=== PATIENT | female | born 1930 | race Caucasian/White ===

== ENCOUNTER 2018-10-15 16:53 | Emergency (ER) | payer MEDICARE ==
[~2018-10-15 16:53] MED LIST changes: -CEPH500T7 PO; -FAMO20TA28 PO; -FURO20TA19 PO; -POTA20TA94 PO
--- NOTE | 2018-10-15 16:57 | ER Report ---
History and Physical Time Seen By MD: 16:57 Hx. of Stated Complaint: ABD PAIN HPI/ROS CHIEF COMPLAINT: Abdominal pain HISTORY OF PRESENT ILLNESS: 88-year-old female patient presents to emergency room with complaint of abdominal pain. Patient states she had sudden onset of abdominal pain approximately one hour ago. Patient states pain seems to be slightly improved at this time. Patient denies having any nausea, vomiting or diarrhea. Patient states that the pain was so bad that she is not able to tolerated initially. She states that she has got taken any medication for this. She denies having anything that seems to make the pain better or worse. Patient denies having any chest pain at this time. REVIEW OF SYSTEMS: Respiratory: No cough, no dyspnea. Cardiovascular: No chest pain, no palpitations. Gastrointestinal: As noted above Musculoskeletal: No back pain. Allergies: Coded Allergies: ibuprofen (Verified Allergy, Unknown, 06/20/17) Home Meds Active Scripts Cephalexin 500 Mg Tab (KEFLEX 500 MG TAB) 500 Mg Tablet, 500 MG PO BID, #14 TAB Prov:INDER ESPOSITO 10/15/18 Reported Medications Potassium Chloride (POTASSIUM CHLORIDE) 20 Meq Tab.er.prt, 40 MEQ PO QDAY 10/15/18 Furosemide (LASIX) 20 Mg Tablet, 1 TAB PO DAILY, TAB 10/15/18 Coconut Oil (COCONUT OIL) 100 Gm Oil, 100 GM PO 5XD spoonful 06/20/17 Aller Xt-Tree Pollen-Melaleuca (Melaleuca) 1:20 Vial, 1 VIAL PO QDAY 06/20/17 Multivitamin With Minerals (MULTIPLE VITAMIN) 1 Each Tablet, 1 EACH PO QDAY, TAB 06/20/17 Discontinued Scripts Hydrocodone Bit/Acetaminophen (HYDROCODON-ACETAMINOPHEN 5-325) 1 Each Tablet, 1 EACH PO Q4-6H PRN for MILD TO MODERATE PAIN, #20 TAB 0 Refills Prov:ANMOL GAYTAN DO 06/28/17 Past Medical/Surgical History Patient has a past medical history of dementia, lower extremity edema, A. fib, hypertension, shortness of breath and exertional frequent UTI, knee pain, arthritis, wrist fracture, back pain, diabetes, anxiety. Patient has a surgical history of cataract surgery, lumbar surgery, right total hip replacement, right hip surgery, hysterectomy. Patient has a family medical history of diabetes. Reviewed Nurses Notes: Yes Hx Smoking: No Smoking Status: Never Smoker Exposure to Second Hand Smoke?: No Hx Substance Use Disorder: No Hx Alcohol Use: No Constitutional Vital Sign - Last 24 Hours 10/15/18 10/15/18 10/15/18 10/15/18 16:50 16:53 17:00 17:23 Temp 98.2 Pulse 76 80 78 Resp 14 32 12 B/P (MAP) 152/68 158/78 (104) Pulse Ox 87 85 97 O2 Delivery Room Air 10/15/18 10/15/18 10/15/18 10/15/18 17:30 18:00 19:10 19:30 Pulse 82 91 Resp 9 9 B/P (MAP) 180/73 (108) 179/67 (104) 169/86 (113) 159/79 (105) Pulse Ox 97 96 Physical Exam General Appearance: The patient is alert, has no immediate need for airway protection and no current signs of toxicity. Respiratory: Chest is non tender, lungs are clear to auscultation. Cardiac: regular rate and rhythm Gastrointestinal: Abdomen is soft and tender in bilateral upper quadrants, no masses, bowel sounds normal. Musculoskeletal: Neck: Neck is supple and non tender. Extremities have full range of motion and are non tender. Skin: No rashes or lesions. DIFFERENTIAL DIAGNOSIS: After history and physical exam differential diagnosis was considered for abdominal pain including but not limited to appendicitis, cholecystitis, gastritis and urinary tract infection. Medical Decision Making Data Points Result Diagram: 10/15/18 1705 10/15/18 1705 Laboratory Hematology Test 10/15/18 17:05 10/15/18 17:37 Red Blood Count 4.90 M/uL (4.17-5.56) Mean Corpuscular Volume 94.7 fL (80.0-96.0) Mean Corpuscular Hemoglobin 31.8 pg (26.0-33.0) Mean Corpuscular Hemoglobin Concent 33.6 g/dL (32.0-36.0) Red Cell Distribution Width 12.9 % (11.5-14.5) Mean Platelet Volume 7.0 fL (7.2-11.1) Neutrophils (%) (Auto) 49.7 % (39.4-72.5) Lymphocytes (%) (Auto) 40.3 % (17.6-49.6) Monocytes (%) (Auto) 7.0 % (4.1-12.4) Eosinophils (%) (Auto) 2.4 % (0.4-6.7) Basophils (%) (Auto) 0.6 % (0.3-1.4) Nucleated RBC Relative Count (auto) 0.0 /100WBC Neutrophils # (Auto) 5.5 K/uL (2.0-7.4) Lymphocytes # (Auto) 4.5 K/uL (1.3-3.6) Monocytes # (Auto) 0.8 K/uL (0.3-1.0) Eosinophils # (Auto) 0.3 K/uL (0.0-0.5) Basophils # (Auto) 0.1 K/uL (0.0-0.1) Nucleated RBC Absolute Count (auto) 0.00 K/uL Prothrombin Time 12.2 seconds (12.0-14.4) Prothromb Time International Ratio 0.91 Activated Partial Thromboplast Time 28 seconds (23-35) D-Dimer Quantitative (PE/DVT) 1.06 ug/ml (0-0.50) Sodium Level 139 mmol/L (137-145) Potassium Level 4.8 mmol/L (3.5-5.0) Chloride Level 101 mmol/L (98-107) Carbon Dioxide Level 25 mmol/L (22-31) Blood Urea Nitrogen 15 mg/dl (7-18) Creatinine 0.90 mg/dl (0.52-1.04) Glomerular Filtration Rate Calc 59.1 Random Glucose 134 mg/dl (75-110) Lactate 2.4 mmol/L (0.7-2.1) Calcium Level 9.9 mg/dl (8.4-10.2) Total Bilirubin 0.6 mg/dl (0.2-1.3) Aspartate Amino Transf (AST/SGOT) 107 U/L (0-35) Alanine Aminotransferase (ALT/SGPT) 55 U/L (0-56) Alkaline Phosphatase 105 U/L (0-126) Troponin I < 0.012 ng/ml C-Reactive Protein < 0.5 mg/dl (<1.0) Total Protein 8.0 g/dl (6.3-8.2) Albumin 4.6 g/dl (3.5-5.0) Amylase Level 76 U/L (0-110) Lipase 139 U/L (23-300) Urine Color [place] Urine Clarity Cloudy Urine pH 5.0 pH (4.8-9.5) Urine Specific [place] 1.018 Urine Protein 30 mg/dL (NEGATIVE) Urine Glucose (UA) Negative mg/dL (NEGATIVE) Urine Ketones Negative mg/dL (NEGATIVE) Urine Blood Negative (NEGATIVE) Urine Nitrite Negative (NEGATIVE) Urine Bilirubin Negative (NEGATIVE) Urine Urobilinogen 2.0 mg/dL (0.2-1.9) Urine Leukocyte Esterase Large (NEGATIVE) Urine RBC 12 /HPF (0-2/HPF) Urine WBC 442 /HPF (0-5/HPF) Urine WBC Clumps Few /HPF Urine Squamous Epithelial Cells Many /LPF (</=FEW) Urine Bacteria Few /HPF (NONE-FEW) Urine Hyaline Casts Many /LPF (NONE-FEW) Urine Mucus Few /HPF (NONE-FEW) Chemistry Test 10/15/18 17:05 10/15/18 17:37 White Blood Count 11.1 k/uL (4.5-11.0) Red Blood Count 4.90 M/uL (4.17-5.56) Hemoglobin 15.6 g/dL (12.0-16.0) Hematocrit 46.4 % (34.0-47.0) Mean Corpuscular Volume 94.7 fL (80.0-96.0) Mean Corpuscular Hemoglobin 31.8 pg (26.0-33.0) Mean Corpuscular Hemoglobin Concent 33.6 g/dL (32.0-36.0) Red Cell Distribution Width 12.9 % (11.5-14.5) Platelet Count 417 K/uL (150-450) Mean Platelet Volume 7.0 fL (7.2-11.1) Neutrophils (%) (Auto) 49.7 % (39.4-72.5) Lymphocytes (%) (Auto) 40.3 % (17.6-49.6) Monocytes (%) (Auto) 7.0 % (4.1-12.4) Eosinophils (%) (Auto) 2.4 % (0.4-6.7) Basophils (%) (Auto) 0.6 % (0.3-1.4) Nucleated RBC Relative Count (auto) 0.0 /100WBC Neutrophils # (Auto) 5.5 K/uL (2.0-7.4) Lymphocytes # (Auto) 4.5 K/uL (1.3-3.6) Monocytes # (Auto) 0.8 K/uL (0.3-1.0) Eosinophils # (Auto) 0.3 K/uL (0.0-0.5) Basophils # (Auto) 0.1 K/uL (0.0-0.1) Nucleated RBC Absolute Count (auto) 0.00 K/uL Prothrombin Time 12.2 seconds (12.0-14.4) Prothromb Time International Ratio 0.91 Activated Partial Thromboplast Time 28 seconds (23-35) D-Dimer Quantitative (PE/DVT) 1.06 ug/ml (0-0.50) Glomerular Filtration Rate Calc 59.1 Lactate 2.4 mmol/L (0.7-2.1) Calcium Level 9.9 mg/dl (8.4-10.2) Total Bilirubin 0.6 mg/dl (0.2-1.3) Aspartate Amino Transf (AST/SGOT) 107 U/L (0-35) Alanine Aminotransferase (ALT/SGPT) 55 U/L (0-56) Alkaline Phosphatase 105 U/L (0-126) Troponin I < 0.012 ng/ml C-Reactive Protein < 0.5 mg/dl (<1.0) Total Protein 8.0 g/dl (6.3-8.2) Albumin 4.6 g/dl (3.5-5.0) Amylase Level 76 U/L (0-110) Lipase 139 U/L (23-300) Urine Color [place] Urine Clarity Cloudy Urine pH 5.0 pH (4.8-9.5) Urine Specific [place] 1.018 Urine Protein 30 mg/dL (NEGATIVE) Urine Glucose (UA) Negative mg/dL (NEGATIVE) Urine Ketones Negative mg/dL (NEGATIVE) Urine Blood Negative (NEGATIVE) Urine Nitrite Negative (NEGATIVE) Urine Bilirubin Negative (NEGATIVE) Urine Urobilinogen 2.0 mg/dL (0.2-1.9) Urine Leukocyte Esterase Large (NEGATIVE) Urine RBC 12 /HPF (0-2/HPF) Urine WBC 442 /HPF (0-5/HPF) Urine WBC Clumps Few /HPF Urine Squamous Epithelial Cells Many /LPF (</=FEW) Urine Bacteria Few /HPF (NONE-FEW) Urine Hyaline Casts Many /LPF (NONE-FEW) Urine Mucus Few /HPF (NONE-FEW) Coagulation Test 10/15/18 17:05 Prothrombin Time 12.2 seconds Prothromb Time International Ratio 0.91 Activated Partial Thromboplast Time 28 seconds D-Dimer Quantitative (PE/DVT) 1.06 ug/ml Urinalysis Test 10/15/18 17:37 Urine Color [place] Urine Clarity Cloudy Urine pH 5.0 pH (4.8-9.5) Urine Specific [place] 1.018 Urine Protein 30 mg/dL (NEGATIVE) Urine Glucose (UA) Negative mg/dL (NEGATIVE) Urine Ketones Negative mg/dL (NEGATIVE) Urine Blood Negative (NEGATIVE) Urine Nitrite Negative (NEGATIVE) Urine Bilirubin Negative (NEGATIVE) Urine Urobilinogen 2.0 mg/dL (0.2-1.9) Urine Leukocyte Esterase Large (NEGATIVE) Urine RBC 12 /HPF (0-2/HPF) Urine WBC 442 /HPF (0-5/HPF) Urine WBC Clumps Few /HPF Urine Squamous Epithelial Cells Many /LPF (</=FEW) Urine Bacteria Few /HPF (NONE-FEW) Urine Hyaline Casts Many /LPF (NONE-FEW) Urine Mucus Few /HPF (NONE-FEW) EKG/Imaging EKG Interpretation 12 lead EKG: Rhythm: normal sinus rhythm [place]: normal QRS: Left bundle branch block ST segments: normal EKG appears unchanged when compared with June 26, 2017. Imaging CTA CHEST WW/O CNTR (PULM ANG) HISTORY: elevated d-dimer TECHNIQUE: CTA chest with intravenous contrast attention to pulmonary arteries. Sagittal, coronal and slab 3D MIP coronal reconstructed images were also created for further evaluation and interpretation. CONTRAST: Isovue-370 75 mls. One of the following dose optimization techniques was utilized in the performance of this exam: Automated exposure control; adjustment of the mA and/or kV according to the patient's size; or use of an iterative reconstruction technique. Specific details can be referenced in the facility's radiology CT exam operational policy. COMPARISON: None. FINDINGS: Heart/coronary vessels: The heart is enlarged. Pulmonary arteries: There is no filling defect in the pulmonary vessels to garvin ggest pulmonary embolus. Thoracic aorta: Unremarkable. No dissection seen. Mediastinum: There is no mediastinal or hilar lymphadenopathy. There is no axillary lymphadenopathy. There is a small hiatal hernia. Lymph nodes: None seen. Lungs/pleura: There are findings of bibasilar atelectasis but there is no infiltrate. Visualized upper abdomen: Normal liver and gallbladder. There is a left renal cyst. Calcified granulomata in the spleen. There is an accessory spleen anteriorly. Bones/soft tissues: Negative. IMPRESSION: 1. No findings of pulmonary embolus. 2. Bibasilar atelectasis the lungs but no findings of an infiltrate. 3. Small left renal cyst. 4. Small hiatal hernia. Report Dictated By: Ajit Dailey MD at 10/15/2018 7:18 PM Report E-Signed By: Ajit Dailey MD at 10/15/2018 7:23 PM ED Course/Re-evaluation ED Course Patient was admitted to exam room, history and physical were obtained. Differential diagnoses were considered. On examination lungs are clear, heart is regular, abdomen is soft and mildly tender. An IV was started, a CBC, CMP, lactate, urinalysis were done. Patient had a normal white count, CMP was unremarkable except she did have a slightly elevated AST. Lactate was also elevated 2.9. I am uncertain as to the meaning of the elevated lactate, with no fever and normal white count. Urinalysis was positive with 400 white blood cells per high-power field. Patient had a troponin, EKG done which were unremarkable. Patient does have a normal sinus rhythm with a left bundle branch block. She has had that since 2012. Troponin was negative, d-dimer did come back positive at one. As result of that a CT scan of the chest as well as the abdomen and pelvis were done. The results of the CT scans were negative. Radiologist did note that there was some small air noted in the common bile duct. Radiologist was uncertain as to the significance of that. I discussed the findings with patient. Patient states that she is no longer having any pain she is ready to go home. I did inform her of the urinary tract infection. We will go ahead and get her started on Keflex. We will culture the urine and change treatment if need be. Decision to Disposition Date: Oct 15, 2018 Decision to Disposition Time: 19:36 Depart Departure Latest Vital Signs Vital Signs Date Time Temp Pulse Resp B/P (MAP) Pulse Ox O2 Delivery O2 Flow Rate FiO2 10/15/18 19:30 91 9 159/79 (105) 96 10/15/18 16:50 98.2 Room Air Impression: Primary Impression: Urinary tract infection Additional Impression: Abdominal pain Condition: Improved Disposition: HOME OR SELF-CARE New Scripts Cephalexin 500 Mg Tab (KEFLEX 500 MG TAB) 500 Mg Tablet 500 MG PO BID, #14 TAB Prov: INDER ESPOSITO 10/15/18 Patient Instructions: Urinary Traction Infection in Older Adults (ED) Additional Instructions: Increase fluid intake. Take the antibiotics as directed. Return to the ER if condition worsens. Follow up with your primary care provider in the next week. Get plenty of rest. Problem Qualifiers Primary Impression: Urinary tract infection Urinary tract infection type: acute cystitis Hematuria presence: without hematuria Qualified Codes: N30.00 - Acute cystitis without hematuria Additional Impression: Abdominal pain Abdominal location: generalized Qualified Codes: R10.84 - Generalized abdominal pain INDER ESPOSITO Oct 15, 2018 16:57
[2018-10-15] MEDS ORDERED: NS(*) 0.9% 500 ML BAG 500 ML IV ONE (17:03)
[2018-10-15] MEDS ORDERED: POTA20TA94 PO (17:04)
[2018-10-15] MEDS ORDERED: FURO20TA19 PO (17:04)
[2018-10-15 17:22] LABS: PLATELET COUNT, AUTOMATED 417 K/uL (150-450)
[2018-10-15 17:55] LABS: INR 0.91
[2018-10-15] MEDS ORDERED: NS(*) 0.9% 50 ML BAG 50 ML ONE (18:23)
[2018-10-15] MEDS ORDERED: IOPAMIDOL 76% 75 ML INFUS BTL 75 ML ONE (18:23)
--- NOTE | 2018-10-15 19:28 | RADIOLOGY IMAGING REPORT ---
FACILITY: [facility] - [place] PATIENT NAME: Luna Dominguez : 1930 MR: [id number] V: [id number] EXAM DATE: ORDERING PHYSICIAN: INDER ESPOSITO TECHNOLOGIST: Location: [facility] - [place] Patient: Luna Dominguez : 1930 Visit/Account:[id number] Date of Sevice: 10/15/2018 CTA CHEST WW/O CNTR (PULM ANG) HISTORY: elevated d-dimer TECHNIQUE: CTA chest with intravenous contrast attention to pulmonary arteries. Sagittal, coronal a nd slab 3D MIP coronal reconstructed images were also created for further evaluation and interpretati on. CONTRAST: Isovue-370 75 mls. One of the following dose optimization techniques was utilized in the performance of this exam: Autom ated exposure control; adjustment of the mA and/or kV according to the patient's size; or use of an i terative reconstruction technique. Specific details can be referenced in the facility's radiology C T exam operational policy. COMPARISON: None. FINDINGS: Heart/coronary vessels: The heart is enlarged. Pulmonary arteries: There is no filling defect in the pulmonary vessels to suggest pulmonary embolus. Thoracic aorta: Unremarkable. No dissection seen. Mediastinum: There is no mediastinal or hilar lymphadenopathy. There is no axillary lymphadenopathy. There is a small hiatal hernia. Lymph nodes: None seen. Lungs/pleura: There are findings of bibasilar atelectasis but there is no infiltrate. Visualized upper abdomen: Normal liver and gallbladder. There is a left renal cyst. Calcified granul omata in the spleen. There is an accessory spleen anteriorly. Bones/soft tissues: Negative. IMPRESSION: 1. No findings of pulmonary embolus. 2. Bibasilar atelectasis the lungs but no findings of an infiltrate. 3. Small left renal cyst. 4. Small hiatal hernia. Report Dictated By: jAit Dailey MD at 10/15/2018 7:18 PM Report E-Signed By: Ajit Dailey MD at 10/15/2018 7:23 PM WSN:[id number]
[2018-10-15 19:30] VITALS: BP 159/79
[2018-10-15] MEDS ORDERED: CEPH500T7 PO (19:38)
[2018-10-15] MEDS ORDERED: CEPHALEXIN 500 MG CAP TH 2 CAP/BOTTLE PO ONE (19:40)
--- NOTE | 2018-10-15 20:03 | RADIOLOGY IMAGING REPORT ---
[place] [facility] [place] Luna Dominguez : 1930 MR: [id number] V: [id number] EXAM DATE: ORDERING PHYSICIAN: INDER ESPOSITO TECHNOLOGIST: Location: [facility] [place] Patient: Luna Dominguez : 1930 Visit/Account:[id number] Date of Sevice: 10/15/2018 ABDOMEN/PELVIS WITH CONTRAST History: 88-year-old female with abdominal pain.. Technique: CT images were obtained through the abdomen and pelvis with intravenous contrast using: I sovue-370 75 mls. Coronal and sagittal reformations were then created. One of the following dose optimization techniques was utilized in the performance of this exam: Autom ated exposure control; adjustment of the mA and/or kV according to the patient's size; or use of an i terative reconstruction technique. Specific details can be referenced in the facility's radiology C T exam operational policy. Comparison study: None Findings: Lung bases: There is mild bibasilar atelectasis. Hepatobiliary: There is no finding of focal lesion in the liver to suggest metastatic disease. The ga llbladder is surgically absent. There is a small amount of air in the common bile duct. A cholesterol gallstone cannot be completely excluded but correlation with. There is no hepatic or portal vein thr ombosis. Spleen: Spleen is normal for small calcified granulomata. There is an accessory spleen anteriorly.. Adrenals: Negative Pancreas: Negative. Kidneys/genitourinary/retroperitoneum: There are bilateral renal cysts. There is no hydronephrosis or nephrolithiasis. There is no solid renal mass.. Bowel/peritoneum/mesentery: There is a normal appendix in the right lower quadrant. There are no dila arcelia loops of large or small bowel to suggest ileus or retraction. There are diverticula the sigmoid c olon but there is no finding of diverticulitis. There is a duodenal diverticula projecting off the se cond portion of the duodenum. Pelvic/genital urinary: The bladder is unremarkable. The uterus is not seen. Neither the right or lef t ovary is seen. Correlation with gynecologic surgical history is recommended. Vessels: Negative. Lymph node: Negative. Body wall/bones: Status post right total hip replacement. There is a chronic vertebral body compressi on fracture at L1. There has been posterior fusion at L4-5-4 chronic anterior spondylolisthesis. IMPRESSION: 1. There are no findings to explain this patient's abdominal pain. 2. The gallbladder is surgically absent. There are small air bubbles in the common bile duct. There i s no ductal dilatation. The air bubbles do not appear to represent cholesterol crystals. Mild fullnes s of the intrahepatic ducts is related to the patient's prior cholecystectomy. 3. Status post hysterectomy. The ovaries are not well seen. 4. Status post right total hip replacement and lumbar spine surgery. 5. Diverticulosis of the sigmoid colon. Results were called to INDER ESPOSITO M.D. At 10/15/2018 7:59 PM. Report Dictated By: Ajit Dailey MD at 10/15/2018 7:24 PM Report E-Signed By: Ajit Dailey MD at 10/15/2018 7:59 PM WSN:[id number]
--- NOTE | 2018-10-16 05:31 | EKG ---
FACILITY: [facility] - [place] PATIENT NAME: MIRIAM HERRERA : [id number] MR: [id number] V: [id number] EXAM DATE: ORDERING PHYSICIAN: INDER ESPOSITO TECHNOLOGIST: JANICE Ferreira Reason : Blood Pressure : / mmHG Vent. Rate : 078 BPM Atrial Rate : 078 BPM P-R Int : 182 ms QRS Dur : 132 ms QT Int : 442 ms P-R-T Axes : 056 -16 115 degrees QTc Int : 503 ms Normal sinus rhythm Left bundle branch block Abnormal ECG When compared with ECG of 26-JUN-2017 07:27, premature atrial complexes are no longer present Confirmed by Chris Arriaga ([id number]) on 10/16/2018 7:30:28 AM Referred By: Confirmed By:Chris Rey
== END 2018-10-15 19:53 | disposition home or self-care (01) ==
LOC: ER 17:07
DX: N30.00 Acute cystitis without hematuria (principal); R10.84 Generalized abdominal pain
CPT/HCPCS: 71275; 74177; 81001; 82150; 83605; 83690; 84484; 85025; 85379; 85610; 85730; 86140; 87088; 93005; 96360; 99284; J7040; J7050; Q9967; 82040; 82247; 82310; 82374; 82435; 82565; 82947; 84075; 84132; 84155; 84295; 84450; 84460; 84520

== ENCOUNTER → 2018-10-15 | Outpatient (CLI) | payer MEDICARE ==
[~2018-10-15] MED LIST: ALLE10VI19 PO; AMOX500T10 PO; CEPH500T7 PO; COCO118.2 PO; DILT240C76 PO; FAMO20TA28 PO; FURO20TA19 PO; LOR5/325 PO; MAGN296S6 PO; MULT-1335 PO; NO ROUTINE MEDS; POTA20TA94 PO
== END ==
LOC: AMB 16:28
PROVIDERS: ATTEND Nurse Practitioner
DX: R10.13 Epigastric pain (principal); M54.9 Dorsalgia, unspecified; R60.0 Localized edema; I44.7 Left bundle-branch block, unspecified
CPT/HCPCS: A0425; A0427

== ENCOUNTER 2018-10-19 08:40 | Emergency (ER) | payer MEDICARE ==
[~2018-10-19 08:40] MED LIST changes: +CEPH500T7 PO; +FURO20TA19 PO; +POTA20TA94 PO
[2018-10-19] MEDS ORDERED: MAG HYD/AL HYD/SIMETH 30ML UDC PO ONE (09:20)
[2018-10-19] MEDS ORDERED: LIDOCAINE 2% VISC SLN 15ML UDC PO ONE (09:20)
[2018-10-19] MEDS ORDERED: FAMOTIDINE(*) 20MG/50ML PREMIX 50 ML IVPB ONE (09:20)
--- NOTE | 2018-10-19 09:25 | ER Report ---
History and Physical Time Seen By MD: 09:10 Hx. of Stated Complaint: pain with urination, abd pain HPI/ROS CHIEF COMPLAINT: abdominal pain HISTORY OF PRESENT ILLNESS: Patient has had intermittent epigastric pain since last Saturday. She initially presented last Saturday with this pain that also radiated to her back and shoulders. She had evaluation that included a PE rule out. She was found have a UTI and was treated with Keflex. However, patient has had continued intermittent epigastric pain. The pain now does not radiate. When it comes it is severe. It can last for minutes to hours. It does go away completely in between episodes. Patient has had a decreased appetite and some nausea though has not vomited. Patient does not note any change with food, fluid, or her Keflex. She had never had symptoms like this previously. She's not had change in stools. She does not have dysuria currently. She has not had fever or chills. Patient and daughter report she has had her gallbladder taken out. She denies other abdominal surgeries. REVIEW OF SYSTEMS: Constitutional: No fever, no chills. Eyes: No discharge. ENT: No sore throat. Cardiovascular: No chest pain, no palpitations. Respiratory: No cough, no shortness of breath. Gastrointestinal: above Genitourinary: no dysuria Musculoskeletal: No back pain. Skin: ongoing lower extremity edema treated with unna boots Neurological: No headache. Remainder of the 14 system rev: Yes Allergies: Coded Allergies: ibuprofen (Verified Allergy, Unknown, 06/20/17) Home Meds Active Scripts Famotidine (PEPCID) 20 Mg Tablet, 20 MG PO QDAY, #30 TAB Prov:FATOUMATA LEVY MD 10/19/18 Cephalexin 500 Mg Tab (KEFLEX 500 MG TAB) 500 Mg Tablet, 500 MG PO BID, #14 TAB Prov:INDER ESPOSITO 10/15/18 Reported Medications Potassium Chloride (POTASSIUM CHLORIDE) 20 Meq Tab.er.prt, 40 MEQ PO QDAY 10/15/18 Furosemide (LASIX) 20 Mg Tablet, 1 TAB PO DAILY, TAB 10/15/18 Coconut Oil (COCONUT OIL) 100 Gm Oil, 100 GM PO 5XD spoonful 06/20/17 Aller Xt-Tree Pollen-Melaleuca (Melaleuca) 1:20 Vial, 1 VIAL PO QDAY 06/20/17 Multivitamin With Minerals (MULTIPLE VITAMIN) 1 Each Tablet, 1 EACH PO QDAY, TAB 06/20/17 Discontinued Scripts Hydrocodone Bit/Acetaminophen (HYDROCODON-ACETAMINOPHEN 5-325) 1 Each Tablet, 1 EACH PO Q4-6H PRN for MILD TO MODERATE PAIN, #20 TAB 0 Refills Prov:ANMOL GAYTAN DO 06/28/17 Reviewed Nurses Notes: Yes Old Medical Records Reviewed: Yes Hx Smoking: No Smoking Status: Never Smoker Exposure to Second Hand Smoke?: No Hx Substance Use Disorder: No Hx Alcohol Use: No Constitutional Vital Sign - Last 24 Hours 10/19/18 10/19/18 10/19/18 10/19/18 09:04 09:05 09:10 09:15 Temp 97.7 Pulse 82 84 77 Resp 18 B/P (MAP) 198/95 (129) 198/95 180/97 (124) Pulse Ox 87 92 96 O2 Delivery Room Air 10/19/18 10/19/18 10/19/18 10/19/18 09:20 09:25 09:30 09:35 Pulse 75 76 70 74 B/P (MAP) 175/70 (105) Pulse Ox 93 95 94 95 10/19/18 10/19/18 10/19/18 10/19/18 09:40 09:45 09:50 09:55 Pulse 75 ? 87 Pulse Ox 92 10/19/18 10/19/18 10/19/18 10/19/18 09:56 10:00 10:10 10:25 Pulse 65 71 B/P (MAP) 177/76 (109) 166/77 (106) Pulse Ox 95 10/19/18 10/19/18 10/19/18 10/19/18 10:30 10:40 10:55 11:00 Pulse 67 71 Resp 39 B/P (MAP) 166/67 (100) 174/66 (102) Pulse Ox 95 95 10/19/18 10/19/18 10/19/18 10/19/18 11:10 11:25 11:39 11:40 Pulse 65 73 68 Resp 12 B/P (MAP) 202/86 (124) Pulse Ox 95 94 92 Physical Exam General Appearance: The patient is alert, has no immediate need for airway protection and no signs of toxicity. Eyes: Pupils equal and round no pallor or injection. ENT, Mouth: Mucous membranes are moist. Respiratory: There are no retractions, lungs are clear to auscultation. Cardiovascular: Regular rate and rhythm. [ ] Gastrointestinal: epigastric TTP, no RUQ ttp. Abd not distended, not peritoneal. Mild guarding. Neurological: alert, interactive, moves all ext Skin: Warm and dry, no rashes with exception of bilateral lower extremities, in unna boots, mild weeping noted. Musculoskeletal: Lower extremities in unna boots as above DIFFERENTIAL DIAGNOSIS: After history and physical exam differential diagnosis was considered for acs, mesenteric ischemia, gastritis, pud, or complication of, aaa, or other emergent etiology of symptoms. Medical Decision Making Data Points Result Diagram: 10/19/18 1053 10/19/18 1053 Laboratory Hematology Test 10/19/18 10:53 10/19/18 11:04 Red Blood Count 4.52 M/uL (4.17-5.56) Mean Corpuscular Volume 97.0 fL (80.0-96.0) Mean Corpuscular Hemoglobin 32.5 pg (26.0-33.0) Mean Corpuscular Hemoglobin Concent 33.5 g/dL (32.0-36.0) Red Cell Distribution Width 13.2 % (11.5-14.5) Mean Platelet Volume 7.2 fL (7.2-11.1) Neutrophils (%) (Auto) 63.7 % (39.4-72.5) Lymphocytes (%) (Auto) 27.1 % (17.6-49.6) Monocytes (%) (Auto) 7.7 % (4.1-12.4) Eosinophils (%) (Auto) 1.4 % (0.4-6.7) Basophils (%) (Auto) 0.1 % (0.3-1.4) Nucleated RBC Relative Count (auto) 0.1 /100WBC Neutrophils # (Auto) 5.6 K/uL (2.0-7.4) Lymphocytes # (Auto) 2.4 K/uL (1.3-3.6) Monocytes # (Auto) 0.7 K/uL (0.3-1.0) Eosinophils # (Auto) 0.1 K/uL (0.0-0.5) Basophils # (Auto) 0.0 K/uL (0.0-0.1) Nucleated RBC Absolute Count (auto) 0.01 K/uL Sodium Level 140 mmol/L (137-145) Potassium Level 4.6 mmol/L (3.5-5.0) Chloride Level 107 mmol/L (98-107) Carbon Dioxide Level 23 mmol/L (22-31) Blood Urea Nitrogen 13 mg/dl (7-18) Creatinine 0.70 mg/dl (0.52-1.04) Glomerular Filtration Rate Calc > 60.0 Random Glucose 106 mg/dl (75-110) Lactate 2.2 mmol/L (0.7-2.1) Calcium Level 9.6 mg/dl (8.4-10.2) Total Bilirubin 0.7 mg/dl (0.2-1.3) Aspartate Amino Transf (AST/SGOT) 693 U/L (0-35) Alanine Aminotransferase (ALT/SGPT) 328 U/L (0-56) Alkaline Phosphatase 118 U/L (0-126) Troponin I 0.013 ng/ml Total Protein 7.3 g/dl (6.3-8.2) Albumin 4.0 g/dl (3.5-5.0) Lipase 122 U/L (23-300) Urine Color Yellow Urine Clarity Clear Urine pH 6.0 pH (4.8-9.5) Urine Specific Potter 1.011 Urine Protein Negative mg/dL (NEGATIVE) Urine Glucose (UA) Negative mg/dL (NEGATIVE) Urine Ketones Negative mg/dL (NEGATIVE) Urine Blood Negative (NEGATIVE) Urine Nitrite Negative (NEGATIVE) Urine Bilirubin Negative (NEGATIVE) Urine Urobilinogen Negative mg/dL (0.2-1.9) Urine Leukocyte Esterase Negative (NEGATIVE) Urine RBC <1 /HPF (0-2/HPF) Urine WBC 1 /HPF (0-5/HPF) Urine Squamous Epithelial Cells Many /LPF (NONE-FEW) Urine Transitional Epithelial Cells Few /LPF (NONE-FEW) Urine Bacteria Negative /HPF (NONE-FEW) Urine Mucus None /HPF (NONE-FEW) Chemistry Test 10/19/18 10:53 10/19/18 11:04 White Blood Count 8.9 k/uL (4.5-11.0) Red Blood Count 4.52 M/uL (4.17-5.56) Hemoglobin 14.7 g/dL (12.0-16.0) Hematocrit 43.9 % (34.0-47.0) Mean Corpuscular Volume 97.0 fL (80.0-96.0) Mean Corpuscular Hemoglobin 32.5 pg (26.0-33.0) Mean Corpuscular Hemoglobin Concent 33.5 g/dL (32.0-36.0) Red Cell Distribution Width 13.2 % (11.5-14.5) Platelet Count 289 K/uL (150-450) Mean Platelet Volume 7.2 fL (7.2-11.1) Neutrophils (%) (Auto) 63.7 % (39.4-72.5) Lymphocytes (%) (Auto) 27.1 % (17.6-49.6) Monocytes (%) (Auto) 7.7 % (4.1-12.4) Eosinophils (%) (Auto) 1.4 % (0.4-6.7) Basophils (%) (Auto) 0.1 % (0.3-1.4) Nucleated RBC Relative Count (auto) 0.1 /100WBC Neutrophils # (Auto) 5.6 K/uL (2.0-7.4) Lymphocytes # (Auto) 2.4 K/uL (1.3-3.6) Monocytes # (Auto) 0.7 K/uL (0.3-1.0) Eosinophils # (Auto) 0.1 K/uL (0.0-0.5) Basophils # (Auto) 0.0 K/uL (0.0-0.1) Nucleated RBC Absolute Count (auto) 0.01 K/uL Glomerular Filtration Rate Calc > 60.0 Lactate 2.2 mmol/L (0.7-2.1) Calcium Level 9.6 mg/dl (8.4-10.2) Total Bilirubin 0.7 mg/dl (0.2-1.3) Aspartate Amino Transf (AST/SGOT) 693 U/L (0-35) Alanine Aminotransferase (ALT/SGPT) 328 U/L (0-56) Alkaline Phosphatase 118 U/L (0-126) Troponin I 0.013 ng/ml Total Protein 7.3 g/dl (6.3-8.2) Albumin 4.0 g/dl (3.5-5.0) Lipase 122 U/L (23-300) Urine Color Yellow Urine Clarity Clear Urine pH 6.0 pH (4.8-9.5) Urine Specific Potter 1.011 Urine Protein Negative mg/dL (NEGATIVE) Urine Glucose (UA) Negative mg/dL (NEGATIVE) Urine Ketones Negative mg/dL (NEGATIVE) Urine Blood Negative (NEGATIVE) Urine Nitrite Negative (NEGATIVE) Urine Bilirubin Negative (NEGATIVE) Urine Urobilinogen Negative mg/dL (0.2-1.9) Urine Leukocyte Esterase Negative (NEGATIVE) Urine RBC <1 /HPF (0-2/HPF) Urine WBC 1 /HPF (0-5/HPF) Urine Squamous Epithelial Cells Many /LPF (NONE-FEW) Urine Transitional Epithelial Cells Few /LPF (NONE-FEW) Urine Bacteria Negative /HPF (NONE-FEW) Urine Mucus None /HPF (NONE-FEW) Urinalysis Test 10/19/18 11:04 Urine Color Yellow Urine Clarity Clear Urine pH 6.0 pH (4.8-9.5) Urine Specific Potter 1.011 Urine Protein Negative mg/dL (NEGATIVE) Urine Glucose (UA) Negative mg/dL (NEGATIVE) Urine Ketones Negative mg/dL (NEGATIVE) Urine Blood Negative (NEGATIVE) Urine Nitrite Negative (NEGATIVE) Urine Bilirubin Negative (NEGATIVE) Urine Urobilinogen Negative mg/dL (0.2-1.9) Urine Leukocyte Esterase Negative (NEGATIVE) Urine RBC <1 /HPF (0-2/HPF) Urine WBC 1 /HPF (0-5/HPF) Urine Squamous Epithelial Cells Many /LPF (NONE-FEW) Urine Transitional Epithelial Cells Few /LPF (NONE-FEW) Urine Bacteria Negative /HPF (NONE-FEW) Urine Mucus None /HPF (NONE-FEW) EKG/Imaging EKG Interpretation 12 lead EKG: Rhythm: normal sinus rhythm [place]: right QRS: widened; LBBB ST segments: c/w Lbbb; neg sgarbossa NSR with LBBB c/w prior ekg [ ] Monitor Interpretation: Normal Sinus Rhythm ED Course/Re-evaluation ED Course Pt presents with intermittent epigastric pain without peritoneal sgs; I reviewed recent w/up and ct images. Exam/labs generally unremarkable with exception of new LFT elevations without e/o jaundice. Keflex may be the etiology of this, and urine is nl so will stop keflex. Pt's pain resolves after ED meds. I did consider acs or other emergent etiology of symptoms, though less likely after ED eval. Pt is very comfortable with close f/u plan and understands SRP's. Decision to Disposition Date: Oct 19, 2018 Decision to Disposition Time: 12:44 Depart Departure Latest Vital Signs Vital Signs Date Time Temp Pulse Resp B/P (MAP) Pulse Ox O2 Delivery O2 Flow Rate FiO2 10/19/18 11:40 68 92 10/19/18 11:39 202/86 (124) 10/19/18 11:25 12 10/19/18 09:05 Room Air 10/19/18 09:04 97.7 Impression: Primary Impression: Abdominal pain Additional Impression: Elevated LFTs Condition: Improved Disposition: HOME OR SELF-CARE Referrals: ALISHA BOSCH DO (PCP) 2 Days New Scripts Famotidine (PEPCID) 20 Mg Tablet 20 MG PO QDAY, #30 TAB Prov: FATOUMATA LEVY MD 10/19/18 Patient Instructions: Abdominal Pain (ED) Additional Instructions: As we discussed, stop taking the keflex. Your urine sample looked better and this is likely the cause of your elevated liver tests. Take pepcid daily to prevent stomach pain. I also recommend you buy maalox over the counter and take this as needed when the pain starts. Please follow up with your primary physician in 2-3 days for recheck of your l iver tests, your blood pressure which is very high, and for further evaluation of your stomach pain. Please return immediately for worsening symptoms or any concerns. Problem Qualifiers Primary Impression: Abdominal pain Abdominal location: epigastric Qualified Codes: R10.13 - Epigastric pain FATOUMATA LEVY MD Oct 19, 2018 09:24
--- NOTE | 2018-10-19 09:42 | EKG ---
FACILITY: [facility] [place] PATIENT NAME: MIRIAM HERRERA : [id number] MR: [id number] V: [id number] EXAM DATE: ORDERING PHYSICIAN: FATOUMATA LEVY TECHNOLOGIST: [place] Test Reason : STOMACH ISSUE Blood Pressure : / mmHG Vent. Rate : 077 BPM Atrial Rate : 077 BPM P-R Int : 186 ms QRS Dur : 136 ms QT Int : 420 ms P-R-T Axes : 049 -27 117 degrees QTc Int : 475 ms Normal sinus rhythm Left bundle branch block Abnormal ECG When compared with ECG of 15-OCT-2018 16:55, QRS axis change in lateral precordial leads of unclear significance Confirmed by QUINN PATEL ([id number]) on 10/19/2018 10:59:40 AM Referred By: MILDRED Confirmed By:QUINN PATEL
--- NOTE | 2018-10-19 11:02 | RADIOLOGY IMAGING REPORT ---
FACILITY: [facility] PATIENT NAME: Luna Dominguez : 1930 MR: [id number] V: [id number] EXAM DATE: ORDERING PHYSICIAN: FATOUMATA LEVY TECHNOLOGIST: Location: [facility] Patient: Luna Dominguez : 1930 Visit/Account:[id number] Date of Sevice: 10/19/2018 Single view of the chest Indication: Epigastric pain. Comparison: None available Findings: Cardiac silhouette within normal limits. No current failure, consolidation, effusion or pneumothorax. No acute bony finding. No free air beneath the hemidiaphragms. IMPRESSION: 1. No acute cardiopulmonary process. Report Dictated By: Liam Lewis MD at 10/19/2018 10:55 AM Report E-Signed By: Liam Lewis MD at 10/19/2018 10:58 AM WSN:[id number]
[2018-10-19 11:06] LABS: PLATELET COUNT, AUTOMATED 289 K/uL (150-450)
[2018-10-19 12:30] VITALS: BP 160/73
[2018-10-19] MEDS ORDERED: FAMO20TA28 PO (12:32)
== END 2018-10-19 12:53 | disposition home or self-care (01) ==
LOC: ER 09:08
DX: R10.13 Epigastric pain (principal); R94.5 Abnormal results of liver function studies
CPT/HCPCS: 36415; 71045; 81001; 83605; 83690; 84484; 85025; 87088; 93005; 96365; 99284; A4353; A9270; J3490; 82040; 82247; 82310; 82374; 82435; 82565; 82947; 84075; 84132; 84155; 84295; 84450; 84460; 84520

== ENCOUNTER 2019-01-15 11:15 | Outpatient (RCR) | payer MEDICARE ==
--- NOTE | 2018-11-06 17:27 | PT INITIAL EVALUATION ---
MEDICAL DIAGNOSIS: venous insufficiency wounds to B) lower legs TREATMENT DIAGNOSIS: same DATE OF ONSET: chronic SUBJECTIVE: Pt presents with B) unna boots applied to both lower legs. CG indicates that pt is seen twice weekly in MD's office for application, which is difficult due to mobility. Pt does have private pay [facility] providers that are able to cover legs during showers to prevent contamination. REHAB PROBLEM LIST: Venous insufficiency with wound at R) lateral ankle and L) lateral calf. PREVIOUS MEDICAL HISTORY: No significant history noted; venous insufficiency wound present. OBJECTIVE: R) lateral malleolus with wound that measures 1cm L x 1cm W x 0.3cm D and minimal drainage. L) lateral calf wound that currently measures 1.8cm L x 1.3cm W x 0.3cm D with 100% slough obscuring depth of wound bed. Higher level of drainage and weeping noted on L) LE as compared to R) LE. Ankle/Brachial index: 1.05 at B) LE indicating appropriateness for compression application at therapeutic level greater than 30mmHg to address venous insufficiency. Girth at ankle: 31cm and calf: 44.5cm; juxtalite compression garments to be ordered to maintain compression once wounds have healed. ASSESSMENT: Due to difficulty with transportation, pt/CG may benefit from a reduction to once weekly wound care with a more absorbant dressing application, possibly. Wounds were cleansed with sterile saline and treated with silver calcium alginate to assist with autolytic debridement, as L) lateral calf wound has 100% adhered yellow slough present, which obscures the true base of the wound. PT then applied coflex lite 2 stage compression wrap in a retrograde manner to B) lower legs. Pt encouraged to elevate LE's above heart if possible, and to follow MD prescription regarding medication management, including use of diuretics to assist with fluid management. PT to reinspect for proper level of absorption at next visit and make adjustments as needed to underlying product, in order to establish the most effective dressing to manage pt's variable level of drainage. Short Term Goals 1. Pt to maintain clean, dry and intact dressings between visits 2. PT to determine most effective underlying dressing to manage drainage effectively and allow for once weekly visits if possible, to minimize strain on pt 3. Pt to tolerate compression wraps and progress to juxtalite compression garments for long-term management of venous insufficiency once wounds have healed. 4. Wound beds to demo 100% granulation tissue with no slough present. 5. Edges of wound bed to gradually epithelialize inward with 100% re- epithelialization. 6. Any signs or symptoms of infection to be reported to PCP for further treatment. Patient's Goals Wounds to heal and manage edema with fewer office visits PLAN: Patient to be seen for conservative, selective debridement of slough and non-viable tissue in order to gain a healthy wound bed. Selection of advanced wound care products to optimize drainage control and minimize dressing change frequency. 1-2x/week for up to 3 months. Thank you for this referral. If you have any questions, comments, or concerns about this report or plan, please contact me at . H. Noemi Leggett, PT, MPT, OMS GRETAD
[~2019-01-15 11:15] MED LIST changes: +FAMO20TA28 PO
== END 2019-01-19 ==
LOC: PT 11:15
PROVIDERS: ATTEND Family Medicine
DX: L97.312 Non-pressure chronic ulcer of right ankle with fat layer exposed (principal); L97.222 Non-pressure chronic ulcer of left calf with fat layer exposed; I87.2 Venous insufficiency (chronic) (peripheral)
CPT/HCPCS: 97162

== ENCOUNTER 2019-03-16 11:34 | Emergency (ER) | payer MEDICARE ==
[2019-03-16] MEDS ORDERED: FURO-45 (11:42)
--- NOTE | 2019-03-16 11:49 | ER Report ---
History and Physical Time Seen By MD: 11:48 Hx. of Stated Complaint: PT REPORTS INCREASED PAIN IN VENOUS STASIS ULCER ON L ANKLE. PT TO ED FROM WOUND CARE, WORRIED ABOUT CELLULITIS HPI/ROS CHIEF COMPLAINT: Erythema around the venous stasis ulcer HISTORY OF PRESENT ILLNESS: 89-year-old female patient presents to emergency room with complaint of erythema around the venous stasis ulcer on her left lower leg. The patient's states that she was at physical therapy today. He states that she was evaluated by the PT became concerned that she may have a developing cellulitis. He states that the wound has become red and seems a gotten bigger. He states the patient does complain of some discomfort especially with ambulation. He states she's not had any fevers, chills, nausea, vomiting or diarrhea. He states that they were recommended come to the emergency room by physical therapy for further evaluation. REVIEW OF SYSTEMS: Respiratory: No cough, no dyspnea. Cardiovascular: No chest pain, no palpitations. Gastrointestinal: No vomiting, no abdominal pain. Musculoskeletal: No back pain. Allergies: Coded Allergies: cephalexin (Verified Allergy, Unknown, 03/16/19) ibuprofen (Verified Allergy, Unknown, 03/16/19) Home Meds Active Scripts Clindamycin Hcl (CLINDAMYCIN HCL) 300 Mg Capsule, 300 MG PO Q6H, #40 CAPSULE Prov:INDER ESPOSITO 03/16/19 Famotidine (PEPCID) 20 Mg Tablet, 20 MG PO QDAY, #30 TAB Prov:FATOUMATA LEVY MD 10/19/18 Reported Medications Potassium Chloride (POTASSIUM CHLORIDE) 20 Meq Tab.er.prt, 40 MEQ PO QDAY 10/15/18 Furosemide (LASIX) 20 Mg Tablet, 1 TAB PO DAILY, TAB 10/15/18 Coconut Oil (COCONUT OIL) 100 Gm Oil, 100 GM PO 5XD spoonful 06/20/17 Aller Xt-Tree Pollen-Melaleuca (Melaleuca) 1:20 Vial, 1 VIAL PO QDAY 06/20/17 Multivitamin With Minerals (MULTIPLE VITAMIN) 1 Each Tablet, 1 EACH PO QDAY, TAB 06/20/17 Discontinued Reported Medications Furosemide (FUROSEMIDE) 20 Mg Tablet, QDAY 03/16/19 Discontinued Scripts Cephalexin 500 Mg Tab (KEFLEX 500 MG TAB) 500 Mg Tablet, 500 MG PO BID, #14 TAB Prov:INDER ESPOSITO MOBILE DESIGNER 10/15/18 Past Medical/Surgical History Patient has a past medical history of dementia, lower extremity edema, A. fib, hypertension, exertional dyspnea, frequent UTI, arthritis, fractures, back pain, diabetes, anxiety. Patient has surgical history of cataract surgery, lumbar surgery, total hip replacement, right hip surgery, hysterectomy. Patient has a family medical history of diabetes. Reviewed Nurses Notes: Yes Hx Smoking: No Smoking Status: Never Smoker Exposure to Second Hand Smoke?: No Hx Substance Use Disorder: No Hx Alcohol Use: No Constitutional Vital Sign - Last 24 Hours 03/16/19 03/16/19 03/16/19 03/16/19 11:35 11:45 12:15 12:45 Temp 98.0 Pulse 91 76 70 71 Resp 16 B/P (MAP) 180/85 Pulse Ox 91 90 88 88 O2 Delivery Room Air 03/16/19 13:05 B/P (MAP) 168/77 (107) Physical Exam General Appearance: The patient is alert, has no immediate need for airway protection and no current signs of toxicity. Respiratory: Chest is non tender, lungs are clear to auscultation. Cardiac: regular rate and rhythm Gastrointestinal: Abdomen is soft and non tender, no masses, bowel sounds normal. Musculoskeletal: Neck: Neck is supple and non tender. Extremities have full range of motion and are non tender. Skin: No rashes or lesions. Patient does have some erythema, warmth at the distal end of the stasis ulcer. Not tender to palpation. There is no significant discharge noted. DIFFERENTIAL DIAGNOSIS: After history and physical exam differential diagnosis was considered for cellulitis, erythema Medical Decision Making Data Points Result Diagram: 03/16/19 1202 03/16/19 1202 Laboratory Hematology Test 03/16/19 12:02 Red Blood Count 4.98 M/uL (4.17-5.56) Mean Corpuscular Volume 94.3 fL (80.0-96.0) Mean Corpuscular Hemoglobin 30.9 pg (26.0-33.0) Mean Corpuscular Hemoglobin Concent 32.8 g/dL (32.0-36.0) Red Cell Distribution Width 13.6 % (11.5-14.5) Mean Platelet Volume fL (7.2-11.1) Neutrophils (%) (Auto) 64.3 % (39.4-72.5) Lymphocytes (%) (Auto) 22.2 % (17.6-49.6) Monocytes (%) (Auto) 8.9 % (4.1-12.4) Eosinophils (%) (Auto) 4.0 % (0.4-6.7) Basophils (%) (Auto) 0.6 % (0.3-1.4) Nucleated RBC Relative Count (auto) 0.1 /100WBC Neutrophils # (Auto) 7.7 K/uL (2.0-7.4) Lymphocytes # (Auto) 2.6 K/uL (1.3-3.6) Monocytes # (Auto) 1.1 K/uL (0.3-1.0) Eosinophils # (Auto) 0.5 K/uL (0.0-0.5) Basophils # (Auto) 0.1 K/uL (0.0-0.1) Nucleated RBC Absolute Count (auto) 0.01 K/uL Peripheral Blood Smear Yes Y/N Sodium Level 141 mmol/L (137-145) Potassium Level 4.4 mmol/L (3.5-5.0) Chloride Level 101 mmol/L (98-107) Carbon Dioxide Level 28 mmol/L (22-31) Blood Urea Nitrogen 16 mg/dl (7-18) Creatinine 0.80 mg/dl (0.52-1.04) Glomerular Filtration Rate Calc > 60.0 Random Glucose 104 mg/dl (75-110) Calcium Level 9.5 mg/dl (8.4-10.2) Total Bilirubin 0.5 mg/dl (0.2-1.3) Aspartate Amino Transf (AST/SGOT) 27 U/L (0-35) Alanine Aminotransferase (ALT/SGPT) 25 U/L (0-56) Alkaline Phosphatase 87 U/L (0-126) Total Protein 7.7 g/dl (6.3-8.2) Albumin 4.1 g/dl (3.5-5.0) Chemistry Test 03/16/19 12:02 White Blood Count 11.9 k/uL (4.5-11.0) Red Blood Count 4.98 M/uL (4.17-5.56) Hemoglobin 15.4 g/dL (12.0-16.0) Hematocrit 47.0 % (34.0-47.0) Mean Corpuscular Volume 94.3 fL (80.0-96.0) Mean Corpuscular Hemoglobin 30.9 pg (26.0-33.0) Mean Corpuscular Hemoglobin Concent 32.8 g/dL (32.0-36.0) Red Cell Distribution Width 13.6 % (11.5-14.5) Platelet Count 382 K/uL (150-450) Mean Platelet Volume fL (7.2-11.1) Neutrophils (%) (Auto) 64.3 % (39.4-72.5) Lymphocytes (%) (Auto) 22.2 % (17.6-49.6) Monocytes (%) (Auto) 8.9 % (4.1-12.4) Eosinophils (%) (Auto) 4.0 % (0.4-6.7) Basophils (%) (Auto) 0.6 % (0.3-1.4) Nucleated RBC Relative Count (auto) 0.1 /100WBC Neutrophils # (Auto) 7.7 K/uL (2.0-7.4) Lymphocytes # (Auto) 2.6 K/uL (1.3-3.6) Monocytes # (Auto) 1.1 K/uL (0.3-1.0) Eosinophils # (Auto) 0.5 K/uL (0.0-0.5) Basophils # (Auto) 0.1 K/uL (0.0-0.1) Nucleated RBC Absolute Count (auto) 0.01 K/uL Peripheral Blood Smear Yes Y/N Glomerular Filtration Rate Calc > 60.0 Calcium Level 9.5 mg/dl (8.4-10.2) Total Bilirubin 0.5 mg/dl (0.2-1.3) Aspartate Amino Transf (AST/SGOT) 27 U/L (0-35) Alanine Aminotransferase (ALT/SGPT) 25 U/L (0-56) Alkaline Phosphatase 87 U/L (0-126) Total Protein 7.7 g/dl (6.3-8.2) Albumin 4.1 g/dl (3.5-5.0) ED Course/Re-evaluation ED Course Patient was admitted to and examined, history and physical were obtained. Differential diagnoses were considered. On examination patient does have some erythema to the distal end of the venous stasis ulcer on the left leg. An IV was started, a CBC, CMP were obtained. Patient did have a slightly elevated white count of 11.7. There was no left shift. CMP was unremarkable. Patient received a dose of clindamycin here in the emergency room. We will go ahead and discharge patient home at this time. She is to take clindamycin for the next 10 days. She is to follow-up with her primary care provider, Dr. Bosch in one week. Patient and her verbalized understanding and agreement with plan. Decision to Disposition Date: Mar 16, 2019 Decision to Disposition Time: 13:06 Depart Departure Latest Vital Signs Vital Signs Date Time Temp Pulse Resp B/P (MAP) Pulse Ox O2 Delivery O2 Flow Rate FiO2 03/16/19 13:05 168/77 (107) 03/16/19 12:45 71 88 03/16/19 11:35 98.0 16 Room Air Impression: Primary Impression: Cellulitis and abscess of left leg Condition: Improved Disposition: HOME OR SELF-CARE Referrals: ALISHA BOSCH DO (PCP) New Scripts Clindamycin Hcl (CLINDAMYCIN HCL) 300 Mg Capsule 300 MG PO Q6H, #40 CAPSULE Prov: INDER ESPOSITO 03/16/19 Patient Instructions: Cellulitis (ED) Additional Instructions: Limit activity by pain. Follow up with Elsa as scheduled for your next PT appointment. Follow up with Dr. Bosch in the next week. Return to the ER if condition worsens; you develop fever or worsening pain. Get plenty of rest. Take the antibiotics as directed. INDER ESPOSITO Mar 16, 2019 11:48
[2019-03-16] MEDS ORDERED: CLINDAMYCIN(*) 600 MG/NS 50 ML 50 ML IVPB ONE (12:00)
[2019-03-16 12:35] LABS: PLATELET COUNT, AUTOMATED 382 K/uL (150-450)
[2019-03-16 13:05] VITALS: BP 168/77
[2019-03-16] MEDS ORDERED: CLIN300C99 PO (13:06)
== END 2019-03-16 13:17 | disposition home or self-care (01) ==
LOC: ER 11:34
DX: L03.116 Cellulitis of left lower limb (principal)
CPT/HCPCS: 85025; 96360; 99283; J3490; 82040; 82247; 82310; 82374; 82435; 82565; 82947; 84075; 84132; 84155; 84295; 84450; 84460; 84520; 96365

== ENCOUNTER 2019-03-19 11:15 | Outpatient (RCR) | payer MEDICARE ==
--- NOTE | 2019-01-22 15:09 | PT PLAN OF CARE ---
Physician: Dr. Abrams Patient is being seen: Luna Dominguez Therapist: Aster Weston and Quiana Leggett Medical Diagnosis: Bilateral venous insufficiency ulcers Treatment Diagnosis: Bilateral venous insufficiency ulcers Date of Onset: Chronic Date of Initial Evaluation: 01/22/19 Date patient was last seen: 01/22/19 Number of treatments: 19 Number of cancellations/No shows: 19 INTERVENTIONS: The pt has been seen for skilled PT wound care to include conservative, selective sharps debridement as well as advanced wound care product selection and application. Wounds have demonstrated periods of healing and worsening. The patient's family and caregivers have been educated extensively on importance of compliance with diuretic use as well as LE elevation to assist with edema management . The pt's spouse has been bringing pt to appts as of late (pt's daughter had surgery) and spouse demonstrates impaired insight into importance of these recommendations. Pt's spouse reports that pt complains of LE pain with elevation. We have requested further work up by the pt's PCP to address possible need for referral to vascular specialist and/or medication management. GOALS: 1. Pt to maintain clean, dry and intact dressings between visits 2. PT to determine most effective underlying dressing to manage drainage effectively and allow for once weekly visits if possible, to minimize strain on pt 3. Pt to tolerate compression wraps and progress to juxtalite compression garments for long-term management of venous insufficiency once wounds have healed. 4. Wound beds to demo 100% granulation tissue with no slough present. 5. Edges of wound bed to gradually epithelialize inward with 100% re- epithelialization. 6. Any signs or symptoms of infection to be reported to PCP for further treatment. PATIENT'S GOAL: Wounds to heal and manage edema with fewer office visits Status of Patient's Goals: Not met Patient Compliance: Poor, see above Prognosis: Fair Reasons for continuing therapy: Wounds remain and pt's family has had difficulty demonstrating compliance with PT recommendations. Referral has been made back to PCP for further assistance, PT will plan to continue to see pt 2x/week for skilled debridement, compression therapy application and wound dressing management Thank you for this referral. If you have any questions, comments, or concerns about this report or plan, please contact me at . Aster Weston, PT, DPT MTDD
[~2019-03-19 11:15] MED LIST changes: +CLIN300C99 PO; +FURO-45
== END 2019-03-19 18:00 | disposition home or self-care (01) ==
LOC: PT 11:15
PROVIDERS: ATTEND Family Medicine
DX: L97.312 Non-pressure chronic ulcer of right ankle with fat layer exposed (principal); L97.222 Non-pressure chronic ulcer of left calf with fat layer exposed; I87.2 Venous insufficiency (chronic) (peripheral)

== ENCOUNTER 2019-03-19 11:58 | Emergency (ER) | payer MEDICARE ==
--- NOTE | 2019-03-19 12:11 | ER Report ---
History and Physical Time Seen By MD: 12:11 Hx. of Stated Complaint: PATIENT WAS SEEN ON SATURDAY FOR CELLULITIS OF THE LEFT LEG. HAS SEEN PRIMARY CARE TWICE AND WAS AT PT THIS MORNING AND WAS TOLD TO HAVE IT RE-EVALUATED HERE HPI/ROS CHIEF COMPLAINT: worsening left leg cellulitis HISTORY OF PRESENT ILLNESS: 89 year old female presents to ED after being sent here by PT wound care for worsening cellulitis of left lower leg. Patient was here a couple of days ago for cellulitis and was placed on clindamycin. Since then, the redness has spread, there are more open wounds, and they are weeping serousanguinous fluid. Patient denies pain to the left lower leg, however she states it is uncomfortable. According to her daughter, patient exhibited increased confusion last night; she tried to take her dressing off of her leg and seemed more talkative than normal. Daughter also reports they have not been giving her her diuretic for about a week worrying that it would "interfere with the antibiotic". They have also not been giving her her diuretic as the daughter reports it is difficult to get the patient up to go to the bathroom due to her bad knees. Denies known fevers, SOB, chest pain, nausea, vomiting. REVIEW OF SYSTEMS: Constitutional: No fevers, no appetite changes Respiratory: No cough, no dyspnea. Cardiovascular: No chest pain, no palpitations. Gastrointestinal: No vomiting, no abdominal pain. Musculoskeletal: No back pain. Skin: Increased redness on left lower extremity with more open wounds. Allergies: Coded Allergies: cephalexin (Verified Allergy, Unknown, 03/16/19) ibuprofen (Verified Allergy, Unknown, 03/16/19) Home Meds Active Scripts Clindamycin Hcl (CLINDAMYCIN HCL) 300 Mg Capsule, 300 MG PO Q6H, #40 CAPSULE Prov:INDER ESPOSITO FIBER ARTIST 03/16/19 Famotidine (PEPCID) 20 Mg Tablet, 20 MG PO QDAY, #30 TAB Prov:FATOUMATA LEVY MD 10/19/18 Reported Medications Potassium Chloride (POTASSIUM CHLORIDE) 20 Meq Tab.er.prt, 40 MEQ PO QDAY 10/15/18 Furosemide (LASIX) 20 Mg Tablet, 1 TAB PO DAILY, TAB 10/15/18 Coconut Oil (COCONUT OIL) 100 Gm Oil, 100 GM PO 5XD spoonful 06/20/17 Aller Xt-Tree Pollen-Melaleuca (Melaleuca) 1:20 Vial, 1 VIAL PO QDAY 06/20/17 Multivitamin With Minerals (MULTIPLE VITAMIN) 1 Each Tablet, 1 EACH PO QDAY, TAB 06/20/17 Discontinued Reported Medications Furosemide (FUROSEMIDE) 20 Mg Tablet, QDAY 03/16/19 Discontinued Scripts Cephalexin 500 Mg Tab (KEFLEX 500 MG TAB) 500 Mg Tablet, 500 MG PO BID, #14 TAB Prov:INDER ESPOSITO FIBER ARTIST 10/15/18 Past Medical/Surgical History Pat medical hx dementia, a-fib, HTN, frequent UTI, arthritis, fractured left wrist 2016, back pain, diabetes, anxiety. Past surgical hx of cataract removal, lumbar surgery 2008, right total hip replacement 1984, Right hip scope 1986, hysterectomy, Reviewed Nurses Notes: Yes Hx Smoking: No Smoking Status: Never Smoker Exposure to Second Hand Smoke?: No Hx Substance Use Disorder: No Hx Alcohol Use: No Constitutional Vital Sign - Last 24 Hours 03/19/19 03/19/19 03/19/19 03/19/19 12:03 12:07 12:18 12:38 Temp 98.9 Pulse 85 76 82 Resp 16 B/P (MAP) 177/79 (111) Pulse Ox 82 98 O2 Delivery Room Air 03/19/19 03/19/19 03/19/19 03/19/19 12:58 13:18 13:38 13:40 Pulse 78 82 79 74 Pulse Ox 95 96 03/19/19 03/19/19 03/19/19 03/19/19 14:00 14:20 14:40 15:00 Pulse 78 76 78 79 Pulse Ox 97 95 95 94 03/19/19 03/19/19 15:20 16:20 Pulse 84 88 Resp 18 B/P (MAP) 172/92 (118) Pulse Ox 96 90 O2 Delivery Room Air Physical Exam General Appearance: The patient is alert, has no immediate need for airway protection and no current signs of toxicity. Eyes: Pupils equal and round no injection. Respiratory: Chest is non tender, lungs are coarse to auscultation but this is patient's baseline. Cardiac: regular rate and rhythm Gastrointestinal: Abdomen is soft and non tender, no masses, bowel sounds normal. Musculoskeletal: Neck: Neck is supple and non tender. Extremities have full range of motion and are non tender. Neuro: Alert to person. Not alert to place and time. This is baseline for patient. Skin: Left lower leg with increased redness that has spread to just below her knee. Swelling has increased from previous visit to 2+ to 3+ pitting edema with tight, shiny skin, weeping skin, and increased open wounds to the area. Wounds are draining serousanguinous fluid. DIFFERENTIAL DIAGNOSIS: After history and physical exam differential diagnosis was considered for cellulitis, sepsis, heart failure exacerbation. Medical Decision Making Data Points Result Diagram: 03/19/19 1259 03/19/19 1259 Laboratory Hematology Test 03/19/19 12:59 Red Blood Count 4.58 M/uL (4.17-5.56) Mean Corpuscular Volume 94.0 fL (80.0-96.0) Mean Corpuscular Hemoglobin 31.6 pg (26.0-33.0) Mean Corpuscular Hemoglobin Concent 33.7 g/dL (32.0-36.0) Red Cell Distribution Width 13.8 % (11.5-14.5) Mean Platelet Volume 6.8 fL (7.2-11.1) Neutrophils (%) (Auto) 63.4 % (39.4-72.5) Lymphocytes (%) (Auto) 23.0 % (17.6-49.6) Monocytes (%) (Auto) 8.8 % (4.1-12.4) Eosinophils (%) (Auto) 4.5 % (0.4-6.7) Basophils (%) (Auto) 0.3 % (0.3-1.4) Nucleated RBC Relative Count (auto) 0.0 /100WBC Neutrophils # (Auto) 6.4 K/uL (2.0-7.4) Lymphocytes # (Auto) 2.3 K/uL (1.3-3.6) Monocytes # (Auto) 0.9 K/uL (0.3-1.0) Eosinophils # (Auto) 0.5 K/uL (0.0-0.5) Basophils # (Auto) 0.0 K/uL (0.0-0.1) Nucleated RBC Absolute Count (auto) 0.01 K/uL Sodium Level 138 mmol/L (137-145) Potassium Level 4.7 mmol/L (3.5-5.0) Chloride Level 101 mmol/L (98-107) Carbon Dioxide Level 27 mmol/L (22-31) Blood Urea Nitrogen 13 mg/dl (7-18) Creatinine 0.70 mg/dl (0.52-1.04) Glomerular Filtration Rate Calc > 60.0 Random Glucose 110 mg/dl (75-110) Lactate 1.1 mmol/L (0.7-2.1) Calcium Level 9.5 mg/dl (8.4-10.2) Total Bilirubin 0.4 mg/dl (0.2-1.3) Aspartate Amino Transf (AST/SGOT) 31 U/L (0-35) Alanine Aminotransferase (ALT/SGPT) 29 U/L (0-56) Alkaline Phosphatase 86 U/L (0-126) B-Type Natriuretic Peptide 20 pg/ml (0-100) Total Protein 7.6 g/dl (6.3-8.2) Albumin 4.1 g/dl (3.5-5.0) Chemistry Test 03/19/19 12:59 White Blood Count 10.1 k/uL (4.5-11.0) Red Blood Count 4.58 M/uL (4.17-5.56) Hemoglobin 14.5 g/dL (12.0-16.0) Hematocrit 43.1 % (34.0-47.0) Mean Corpuscular Volume 94.0 fL (80.0-96.0) Mean Corpuscular Hemoglobin 31.6 pg (26.0-33.0) Mean Corpuscular Hemoglobin Concent 33.7 g/dL (32.0-36.0) Red Cell Distribution Width 13.8 % (11.5-14.5) Platelet Count 411 K/uL (150-450) Mean Platelet Volume 6.8 fL (7.2-11.1) Neutrophils (%) (Auto) 63.4 % (39.4-72.5) Lymphocytes (%) (Auto) 23.0 % (17.6-49.6) Monocytes (%) (Auto) 8.8 % (4.1-12.4) Eosinophils (%) (Auto) 4.5 % (0.4-6.7) Basophils (%) (Auto) 0.3 % (0.3-1.4) Nucleated RBC Relative Count (auto) 0.0 /100WBC Neutrophils # (Auto) 6.4 K/uL (2.0-7.4) Lymphocytes # (Auto) 2.3 K/uL (1.3-3.6) Monocytes # (Auto) 0.9 K/uL (0.3-1.0) Eosinophils # (Auto) 0.5 K/uL (0.0-0.5) Basophils # (Auto) 0.0 K/uL (0.0-0.1) Nucleated RBC Absolute Count (auto) 0.01 K/uL Glomerular Filtration Rate Calc > 60.0 Lactate 1.1 mmol/L (0.7-2.1) Calcium Level 9.5 mg/dl (8.4-10.2) Total Bilirubin 0.4 mg/dl (0.2-1.3) Aspartate Amino Transf (AST/SGOT) 31 U/L (0-35) Alanine Aminotransferase (ALT/SGPT) 29 U/L (0-56) Alkaline Phosphatase 86 U/L (0-126) B-Type Natriuretic Peptide 20 pg/ml (0-100) Total Protein 7.6 g/dl (6.3-8.2) Albumin 4.1 g/dl (3.5-5.0) EKG/Imaging EKG Interpretation 12 lead EKG: Rhythm: normal sinus rhythm with left bundle branch block- when compared to previous EKG, they are the same; LBBB was present in previous EKG. Ventricular rate at 77 bpm [place]:normal QRS: wide ST segments: normal Monitor Interpretation: Normal Sinus Rhythm Imaging PATIENT NAME: Luna Dominguez : 1930 MR: [id number] V: [id number] EXAM DATE: ORDERING PHYSICIAN: INDER ESPOSITO TECHNOLOGIST: Location: [facility] Patient: Luna Dominguez : 1930 Visit/Account:[id number] Date of Sevice: 03/19/2019 CT OF THE BRAIN WITHOUT CONTRAST HISTORY: Altered mental status PROCEDURE: 3.0 mm contiguous axial sections were performed through the brain. Sagittal and coronal reformats were submitted. COMPARISON: None available FINDINGS: BRAIN: Brain and intracranial structures: There is no mass lesion, hemorrhage or acute infarct. Diffuse cerebral volume loss is at least moderate. Moderate periventricular deep white matter hypoattenuation is nonspecific likely reflects chronic ischemic change. Cavernous carotid atherosclerosis is severe, and there is also prominent vertebral artery atherosclerosis. Orbits (included portions): Normal. Scalp: Normal. Skull: Normal. Paranasal sinuses and mastoid air cells (included portions): Normal. IMPRESSION: 1. No evidence of acute intracranial abnormality by CT. 2. Chronic findings as noted. Exam type: CHEST PA LAT History: hypoxia Comparison: October 19, 2018. Findings: There is mild chronic elevation of the right hemidiaphragm. This mild chronic peribronchial thickening bilaterally. There is no evidence of acute-appearing pulmonary infiltrates, pleural effusions or overt pulmonary edema. The cardiac silhouette is mildly enlarged. There is moderate ectasia the thoracic aorta. Spondylotic changes of the thoracic spine again noted. IMPRESSION: 1. Chronic elevation right hemidiaphragm ED Course/Re-evaluation ED Course Upon arrival to the ED, patient admitted to an exam room, hx and physical obtained, differential considered. Patient was sent to ED by PT wound care for worsening cellulitis of left lower leg. Patient was here a couple of days ago for cellulitis and was placed on clindamycin. Since then, the redness has spread, there are more open wounds, and they are weeping serousanguinous fluid. According to her daughter, patient exhibited increased confusion last night. Daughter also reports they have not been giving her her diuretic for about a week worrying that it would "interfere with the antibiotic". They have also not been giving her her diuretic as the daughter reports it is difficult to get the patient up to go to the bathroom due to her bad knees. Denies known fevers, SOB, chest pain, nausea, vomiting, change in appetite. On exam, heart rate regular, lungs coarse to auscultation, however, this is patient's baseline. Patient alert to person, but not to place or time; this is patient's baseline. Left lower leg with increased redness from previous visit that has spread to just below her knee. Swelling has increased from previous visit to 2+ to 3+ pitting edema with tight, shiny skin, weeping skin, and increased open wounds to the area. Wounds are draining serousanguinous fluid. IV started. CBC, CMP, lactate, blood cultures, BNP, EKG, and had CT performed. EKG with normal sinus rhythm with left bundle branch block- when compared to previous EKG, they are the same; LBBB was present in previous EKG. Ventricular rate at 77 bpm. Labs unremarkable; WBC down from a couple of days ago to 10.1. No acute changes on chest x-ray; no evidence of acute intracranial abnormality by CT. 1 gram of vancomycin ordered for IVB once while here at the hospital. Will send patient home with orders to continue current antibiotic regimen and to restart her Lasix as Dr. Bosch prescribed. Informed family that it can take up to 72 hours for her oral antibiotics to take effect. Elsa from PT performed wound care prior to discharge. Home health will bring a bedside commode to their house to help her get to the bathroom easier when on diuretics. Patient and family agree with plan of care. Decision to Disposition Date: Mar 19, 2019 Decision to Disposition Time: 16:20 Depart Departure Latest Vital Signs Vital Signs Date Time Temp Pulse Resp B/P (MAP) Pulse Ox O2 Delivery O2 Flow Rate FiO2 03/19/19 16:20 88 18 172/92 (118) 90 Room Air 03/19/19 12:03 98.9 Impression: Primary Impression: Cellulitis and abscess of left leg Condition: Condition Unchanged Disposition: HOME OR SELF-CARE Referrals: ALISHA BOSCH DO (PCP) Patient Instructions: Cellulitis (ED) Additional Instructions: Drink plenty of water and get plenty of rest. Continue to take your current antibiotic as prescribed. Restart your diuretic as Dr. Bosch has prescribed. Home health will bring a bedside commode to your house. Follow-up with Dr. Bosch tomorrow. Continue to see ADRIAN Hunter for wound care. Continue other current medications as prescribed. Please return to the ED with increased leg pain, fever, SOB, chest pain, or any other concerns. INDER ESPOSITO Mar 19, 2019 12:11
[2019-03-19 13:16] LABS: PLATELET COUNT, AUTOMATED 411 K/uL (150-450)
[2019-03-19] MEDS ORDERED: VANCOMYCIN(*) 1 GM VIAL 1 GM in NS(*) 0.9% 250 ML ADDVAN BAG 250 ML IVPB ONE (13:45)
--- NOTE | 2019-03-19 13:54 | RADIOLOGY IMAGING REPORT ---
FACILITY: [facility] PATIENT NAME: Luna Dominguez : 1930 MR: [id number] V: [id number] EXAM DATE: ORDERING PHYSICIAN: INDER ESPOSITO TECHNOLOGIST: [place] [facility] [place] Doming[place] : 1930 Visit/Account:[id number] Date of Sevice: 03/19/2019 CT OF THE BRAIN WITHOUT CONTRAST HISTORY: Altered mental status PROCEDURE: 3.0 mm contiguous axial sections were performed through the brain. Sagittal and coronal r eformats were submitted. COMPARISON: None available FINDINGS: BRAIN: Brain and intracranial structures: There is no mass lesion, hemorrhage or acute infarct. Diffuse cer ebral volume loss is at least moderate. Moderate periventricular deep white matter hypoattenuation i s nonspecific likely reflects chronic ischemic change. Cavernous carotid atherosclerosis is severe, and there is also prominent vertebral artery atherosclerosis. Orbits (included portions): Normal. Scalp: Normal. Skull: Normal. Paranasal sinuses and mastoid air cells (included portions): Normal. IMPRESSION: 1. No evidence of acute intracranial abnormality by CT. 2. Chronic findings as noted. One of the following dose optimization techniques was utilized in the performance of this exam: Autom ated exposure control; adjustment of the mA and/or kV according to the patient's size; or use of an i terative reconstruction technique. Specific details can be referenced in the facility's radiology C T exam operational policy. Report Dictated By: Dave Sultana MD at 03/19/2019 1:38 PM Report E-Signed By: Dave Sultana MD at 03/19/2019 1:49 PM WSN:[email or web address]
[2019-03-19] MEDS ORDERED: VANCOMYCIN(*) 1 GM VIAL 2 GM in NS(*) 0.9% 500 ML BAG 500 ML IVPB ONE (14:15)
--- NOTE | 2019-03-19 14:15 | RADIOLOGY IMAGING REPORT ---
FACILITY: [facility] PATIENT NAME: Luna Dominguez : 1930 MR: [id number] V: [id number] EXAM DATE: ORDERING PHYSICIAN: INDER ESPOSITO TECHNOLOGIST: [place] [facility] [place]: Luna Dominguez : 1930 Visit/Account:[id number] Date of Sevice: 03/19/2019 Exam type: CHEST PA LAT History: hypoxia Comparison: October 19, 2018. Findings: There is mild chronic elevation of the right hemidiaphragm. This mild chronic peribronchial thickeni ng bilaterally. There is no evidence of acute-appearing pulmonary infiltrates, pleural effusions or overt pulmonary edema. The cardiac silhouette is mildly enlarged. There is moderate ectasia the tho racic aorta. Spondylotic changes of the thoracic spine again noted. IMPRESSION: 1. Chronic elevation right hemidiaphragm Chronic peribronchial thickening bilaterally although no evidence of acute pulmonary consolidation. In Report Dictated By: Blanca Mendoza MD at 03/19/2019 2:10 PM Report E-Signed By: Blanca Mendoza MD at 03/19/2019 2:11 PM WSN:[email or web address]
--- NOTE | 2019-03-19 14:44 | EKG ---
FACILITY: [facility] [place] PATIENT NAME: MIRIAM HERRERA : [id number] MR: [id number] V: [id number] EXAM DATE: ORDERING PHYSICIAN: INDER ESPOSITO TECHNOLOGIST: JARRED Test Reason : INCREASED CONFUSION Blood Pressure : / mmHG Vent. Rate : 077 BPM Atrial Rate : 077 BPM P-R Int : 184 ms QRS Dur : 132 ms QT Int : 418 ms P-R-T Axes : 063 -07 148 degrees QTc Int : 473 ms Sinus rhythm Left bundle branch block Abnormal ECG Similar to previous EKG Confirmed by PAMELLA OSBORN ([id number] on 03/19/2019 3:16:30 PM Referred By: VAIBHAV Confirmed By:PAMELLA OSBORN
[2019-03-19 16:20] VITALS: BP 172/92
== END 2019-03-19 16:36 | disposition home or self-care (01) ==
LOC: ER 12:04
DX: L03.116 Cellulitis of left lower limb (principal); I44.7 Left bundle-branch block, unspecified; R09.02 Hypoxemia; R41.82 Altered mental status, unspecified
CPT/HCPCS: 70450; 71046; 83605; 83880; 85025; 87040; 93005; 96365; 96366; 99284; C1758; J3370; J7040; 82040; 82247; 82310; 82374; 82435; 82565; 82947; 84075; 84132; 84155; 84295; 84450; 84460; 84520

== ENCOUNTER → 2019-05-05 | Outpatient (REF) | payer MEDICARE | LOC: ZZSENDIN 16:43 | PROVIDERS: ATTEND Family Medicine | DX: R30.0 Dysuria (principal) | CPT/HCPCS: 81001 ==